=== PATIENT | male | born 1965 | race Caucasian/White ===

== ENCOUNTER 2022-01-23 15:43 | Emergency (ER) | payer MEDICARE, BC ==
[~2022-01-23] VITALS: Ht 175.3 cm; Wt 75.0 kg
[2022-01-23] MEDS ORDERED: SYNTHROID RP0.1 MG PO (19:20)
[2022-01-23] MEDS ORDERED: LIPITOR 40MG TA40 MG PO (19:20)
[2022-01-23] MEDS ORDERED: LEXAPRO20 M1 PO (19:20)
[2022-01-23] MEDS ORDERED: NEURONTIN100 M1 PO (19:21)
[2022-01-23] MEDS ORDERED: NEURONTIN300 MG/CAP PO (19:21)
[2022-01-23 19:30] VITALS: BP 111/78
== END 2022-01-23 19:30 | disposition home or self-care (01) ==
LOC: ED 15:43
DX: M25.572 Pain in left ankle and joints of left foot (principal); S90.812A Abrasion, left foot, initial encounter; Z98.890 Other specified postprocedural states; Z96.89 Presence of other specified functional implants
CPT/HCPCS: L4386